=== PATIENT | male | born 1970 | race Caucasian/White ===

== ENCOUNTER 2016-07-31 09:51 | Emergency (ER) | payer BC, OTHER ==
[~2016-07-31] VITALS: Ht 188 cm; Wt 100.0 kg
[~2016-07-31 09:51] MED LIST: DIAZ5 PO; FISH500C PO; NAPR500 PO
[2016-07-31 09:52] VITALS: BP 145/99; PULSE 84; RESP 16; TEMP 97.9; O2SAT 96
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
== END 2016-07-31 10:47 | disposition home or self-care (01) ==
LOC: NEPB 09:51
DX: S16.1XXA Strain of muscle, fascia and tendon at neck level, initial encounter (principal); M51.26 Other intervertebral disc displacement, lumbar region; E78.00 Pure hypercholesterolemia, unspecified; V43.52XA Car driver injured in collision with other type car in traffic accident, initial encounter; Y99.9 Unspecified external cause status
CPT/HCPCS: 99283